=== PATIENT | female | born 1960 | race Caucasian/White ===

== ENCOUNTER 2020-07-27 11:37 | Day surgery (SDC) | payer OTHER ==
[~2020-07-27] VITALS: Ht 165.1 cm; Wt 84.1 kg
[2020-07-27] MEDS ORDERED: KLOR-CON 88 ME1 PO (12:12)
[2020-07-27] MEDS ORDERED: GLUCOPHAGE500 MG/TAB PO (12:12)
[2020-07-27] MEDS ORDERED: PERCOCET 325 MG1 TAB PO (12:13)
[2020-07-27] MEDS ORDERED: KLOR-CON M2020 MEQ PO (12:13)
[2020-07-27] MEDS ORDERED: PROZAC 20MG20 MG PO (12:14)
[2020-07-27] MEDS ORDERED: LASIX 40MG TABL40 MG PO (12:14)
[2020-07-27] MEDS ORDERED: VITAMIN D 400400 IU PO (12:15)
[2020-07-27] MEDS ORDERED: ONE-A-DAY ESSE1 EACH PO (12:15)
[2020-07-27] MEDS ORDERED: CRANBERRY500 M3 PO (12:15)
[2020-07-27 12:16] VITALS: BP 123/77; PULSE 73; TEMP 98.1
--- NOTE | 2020-07-27 14:45 | NUR ---
Patient tolerated procedure well. Denies pain or other needs. Suprapubic catheter to bedside drainage with clear, yellow urine. at the bedside. Discharge instructions discussed. They deny questions and verbalize understanding. Spouse signs discharge paperwork, as it is difficult for the patient to write. Assisted to change to her clothing and transfer to personal wheelchair. She is escorted to the exit via wheelchair by staff and discharged to home with ride in private vehicle at 1445.
== END 2020-07-27 14:45 | disposition home or self-care (01) ==
LOC: SDCO 11:37
DX: T83.85XA Stenosis due to genitourinary prosthetic devices, implants and grafts, initial encounter (principal); N31.9 Neuromuscular dysfunction of bladder, unspecified; N39.46 Mixed incontinence; N30.20 Other chronic cystitis without hematuria; G35 Multiple sclerosis; Z99.3 Dependence on wheelchair; F32.9 Major depressive disorder, single episode, unspecified; Z91.040 Latex allergy status; Z79.899 Other long term (current) drug therapy; Z86.69 Personal history of other diseases of the nervous system and sense organs; Z80.3 Family history of malignant neoplasm of breast; Z83.3 Family history of diabetes mellitus; Z82.49 Family history of ischemic heart disease and other diseases of the circulatory system

== ENCOUNTER 2020-08-24 08:57 | Day surgery (SDC) | payer OTHER ==
[~2020-08-24] VITALS: Ht 165.1 cm; Wt 84.1 kg
[~2020-08-24 08:57] MED LIST: CRANBERRY500 M3 PO; GLUCOPHAGE500 MG/TAB PO; KLOR-CON 88 ME1 PO; KLOR-CON M2020 MEQ PO; LASIX 40MG TABL40 MG PO; ONE-A-DAY ESSE1 EACH PO; PERCOCET 325 MG1 TAB PO; PROZAC 20MG20 MG PO; VITAMIN D 400400 IU PO
[2020-08-24] MEDS ORDERED: NATURE'S BLE1000 MCG PO (09:25)
[2020-08-24 09:44] VITALS: BP 117/61; PULSE 72; TEMP 98.3
--- NOTE | 2020-08-24 10:00 | NUR ---
Patient is resting comfortably in her room, watching TV. Denies needs at this time.
[2020-08-24 11:30] VITALS: BP 118/73; PULSE 67
--- NOTE | 2020-08-24 11:30 | NUR ---
Patient tolerated procedure well. VSS and WNL on room air. She has some discomfort, which she states is normal for her post-catheter changes. Her catheter is draining clear/yellow urine into the dependent drainage bag.
--- NOTE | 2020-08-24 12:10 | NUR ---
Discharge instructions are discussed with the patient. She denies questions and verbalizes understanding. She is assisted to change clothing and get into her wheelchair by staff and her spouse. She is escorted to the exit via wheelchair and discharged to home with ride in private vehicle at 1210.
== END 2020-08-24 12:10 | disposition home or self-care (01) ==
LOC: SDCO 08:57
DX: N31.9 Neuromuscular dysfunction of bladder, unspecified (principal); G35 Multiple sclerosis; F32.9 Major depressive disorder, single episode, unspecified; G61.0 Guillain-Barre syndrome; Z79.899 Other long term (current) drug therapy; Z91.040 Latex allergy status; Z80.3 Family history of malignant neoplasm of breast